=== PATIENT | male | born 1975 | race Caucasian/White ===

== ENCOUNTER → 2016-05-15 | Outpatient (CLI) | payer OTHER ==
--- NOTE | 2016-05-15 15:37 | KCIC ---
PROCEDURE MRI of the brain without contrast 05/15/2016 HISTORY Chronic intractable headaches for 1 month. TECHNIQUE Unenhanced T1 weighted sagittal and axial, T2 weighted axial coronal and FLAIR, gradient echo and diffusion weighted axial images of the brain were obtained. FINDINGS The ventricles and sulci are within normal limits in size and configuration. An area of decreased signal intensity is seen on the gradient echo images involving the inferior right frontal/anterior temporal lobe near the right sylvian fissure. This appears to warner on the gradient echo images. It appears to correspond to a 4mm area of decreased signal intensity on the T1 weighted and T2 weighted images. There is no surrounding edema or associated mass effect. 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 No acute parenchymal abnormality is seen. No extra-axial fluid collection is noted. There is no MRI evidence of acute ischemia/infarction. Mild mucosal thickening is seen involving the maxillary sinuses and scattered throughout the ethmoid air cells bilaterally. Very mild mucosal thickening is seen involving both frontal sinuses. Mild to moderate mucosal thickening is seen along the sphenoid sinus. Normal flow voids are seen within the major vascular structures surrounding the brain parenchyma. IMPRESSION No acute parenchymal abnormality is seen. Electronically signed by: James Morin MD (May 15, 2016 15:36:37)
== END | disposition home or self-care (01) ==
LOC: KCIC MRI 11:25
PROVIDERS: ATTEND Nurse Practitioner Family
DX: R51 Headache (principal)
CPT/HCPCS: 70551

== ENCOUNTER → 2018-08-29 | Outpatient (CLI) | payer OTHER ==
[~2018-08-29] MED LIST: IOHEXOL 240 MG/ML 50ML VIAL. PO ONE; IOHEXOL 300 MG/ML 100ML VIAL. IV ONE
--- NOTE | 2018-08-29 17:03 | KCIC ---
Examination: CT ABD PELV W/ORAL IV CONTRAST History: Abdominal pain Comparison/Correlation: None Findings: Axial images of the abdomen and pelvis were obtained following IV contrast. Sagittal and coronal reformatted images were provided. Oral contrast was provided. Visualized lung bases are clear. Liver, spleen, pancreas, adrenal glands, and kidneys are normal. Gallbladder fossa is unremarkable. No ascites or pelvic free fluid. No extraluminal gas. No inflammatory changes about the cecum. Appendix is not identified. There is no umbilical hernia. No bowel obstruction. Bony structures are unremarkable. Impression: No acute process. Unremarkable exam. PQRS Compliance Statement: One or more of the following individualized dose reduction techniques were utilized for this examination: 1. Automated exposure control 2. Adjustment of the mA and/or kV according to patient size 3. Use of iterative reconstruction technique Electronically signed by: Nghia Cooper MD (08/29/2018 5:00 PM) [facility]
== END | disposition home or self-care (01) ==
LOC: KCIC CT 10:17
PROVIDERS: ATTEND Internal Medicine Gastroenterology
DX: R10.30 Lower abdominal pain, unspecified (principal)
CPT/HCPCS: 74177; Q9966; Q9967